=== PATIENT | male | born 1955 | race Caucasian/White ===

== ENCOUNTER 2018-05-09 06:45 | Outpatient (CLI) ==
--- NOTE | 2018-05-10 09:45 | ECHO2D ---
Date of Exam: 05/09/18 Ordering Physician: DR. RIC COONEY Room #: OP Reason for Echo: SOA, A-FLUTTER, CABG M-Mode Normal Adult Results LV Dimensions Normal Adult Results AoV Opening excursions >1.6 >1.6 LVEDD-base- 3.5-5.8 4.9 Ao root dimensions 2.0-3.7 4.1 LVESD-base- 3.1-4.6 L. Atrium dimensions 1.9-3.8 5.6 Post. Wall thickness 0.8-1.1 1.4 IV septum (thickness) 0.7-1.2 1.4 Post. Wall excursion 0.72-1.3 NORMAL Septal motion 0.4 Systolic motion R. Ventricular cavity 1.5-2.0 NORMAL LVEF 60% 50 TO 55% Paradoxical septal wall motion NORMAL 2-D : ENLARGED LEFT ATRIAL CAVITY --NORMAL VALVES--NO EFFUSION, NO THROMBUS, NORMAL LEFT VENTRICULAR SIZE-HYPOKINETIC SEPTUM M-MODE: MV: NORMAL AV: NORMAL TV: NORMAL PV: CHAMBER SIZE: ENLARGED LEFT ATRIAL CAVITY WALL MOTION: HYPOKINETIC SEPTUM PERICARDIUM: NORMAL INTERPRETATION: 1. LEFT VENTRICULAR HYPERTROPHY (MILD TO MODERATE) 2. HYPOKINETIC SEPTUM WITH LEFT VENTRICULAR EJECTION FRACTION 50 TO 55% 3. ENLARGED LEFT ATRIAL CAVITY (5.6 CM) 4. VALVES--NORMAL MTDD
== END 2018-05-09 06:46 | disposition home or self-care (01) ==
LOC: CAR 06:45
PROVIDERS: ATTEND Internal Medicine
DX: R06.02 Shortness of breath (principal); I48.92 Unspecified atrial flutter